=== PATIENT | male | born 1985 | race Caucasian/White ===

== ENCOUNTER 2018-09-07 03:25 | Emergency (ER) | payer OTHER, SELFPAY ==
[2018-09-07 03:27] VITALS: BP 140/98; PULSE 79; RESP 16; TEMP 36.6; O2SAT 97; BMI 29.0
--- NOTE | 2018-09-07 03:38 | RAD_ITS ---
STUDY: X-RAY - LEFT HAND, ATTENTION ring FINGER REASON FOR EXAM: Male, 32 years old. Trauma TECHNIQUE: 3 view(s) of the finger were obtained. COMPARISON: None. FINDINGS: Normal metacarpal head. Normal metacarpophalangeal joint. Normal proximal phalanx. Normal middle phalanx. There is fracture involving the distal tuft of the ring finger with displacement by approximately one shaft width. Normal proximal interphalangeal joint. Normal distal interphalangeal joint. RAD/Finger(s) Min 2 Views IMPRESSION: Distal tuft fracture of the ring finger with displacement by approximately one shaft width. Electronically Signed: Esteban Beckford, at 4:03 EDT Tel , Service support ,
--- NOTE | 2018-09-07 03:39 | ED.VIS.UPPEX ---
History of Present Illness Chief Complaint: Upper Extremity Injury Informant: Patient Onset: Today - JPTA Context: Sudden Onset Timing: Continuous Quality of Pain: - - sore/ache Location: left ring finger Current Severity: Moderate Maximum Severity: Moderate Worsened by: moving Relieved by: leaving alone Associated Symptoms: Negative for: Parasthesia, Weakness, Loss of Funtion Narrative: Work-related injury on this left hand dominant healthy 32-year-old. 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 No other injuries. There was some minor bleeding. Tetanus Immunization: <5 years Past Medical History - Allergies and Home Meds Allergies/Adverse Reactions: Allergies No Known Allergies Allergy (Verified 09/07/18 03:27) Primary Care Physician: [facility] Doctor,Out of [Primary Care Provider] - Past Medical History: None Smoking Status: Never smoker Drugs: None Review of Systems Musculoskeletal: Reports: Swelling - had ring cut off just after injury, prior to ED arrival, Extremity Pain Skin: Reports: Wounds Neurological: Denies: Weakness, Parasthesia Physical Exam Vital Signs/Narrative: Vital Signs Temp Pulse Resp BP Pulse Ox 09/07/18 03:27 97.8 F 79 16 140/98 H 97 General: Well nourished, Well developed, - - well-appearing, nad Head: Normocephalic, Atraumatic Extremeties: Mildly swollen and tender left ring finger from distal phalanx all the way to PIPJ. No deformity. Able to flex FDS, FDP, and extensor, but limited range of motion due to swelling and pain. Proximal subungual hematoma with significant nail tenderness, no nail disruption from bed or cuticle. Skin: Trauma - pinhole-sized wound volar left ring finger at DIPJ, no active bleeding but dried blood present Neurological: Alert, Oriented x3, Cranial nerves II-XII grossly intact, Normal Strength, Normal Sensation, Normal Gait Psychological: Normal affect, Normal Mood Diagnostic/Tx/Re-eval - Medical Decision Making On my interpretation x-ray shows nondisplaced fracture of the tuft, the other bones are all intact and the joints are normal limits. Patient was amenable to subungual hematoma drainage via nail trephination. This was performed in a sterile manner, see procedure note, however no significant amount of blood was able to be expressed. I suspect the reason for this is that it was too small and not under pressure. It was bandaged with bacitracin and he was given a distal finger cage splint for protection, this should be a nonsurgical fracture. Given appropriate work restrictions. Procedures Procedure(s): Nail trephination for subungual hematoma -- low temperature electrocautery device used in a sterile fashion prepped with chlorhexidine and isoproterenol. No significant amount of blood was able to be expressed. Bandage with bacitracin. ED Disposition - Plan for ED Patient: Disposition: Home or Assisted Living Diagnosis: Fracture of distal phalanx of left ring finger, Subungual hematoma of finger of left hand Instructions: Subungual Hematoma, FRACTURE, Finger (Closed) Referrals: [facility]YSICIANS] - (2-3 days -- call for appt day/time)
[2018-09-07 05:15] VITALS: BP 134/86; PULSE 67; RESP 17; O2SAT 98
== END 2018-09-07 05:16 | disposition home or self-care (01) ==
LOC: ED 04:17
PROVIDERS: Emergency Provider Emergency Medicine; Family Provider Family Medicine; PCP Family Medicine
DX: S62.665A Nondisplaced fracture of distal phalanx of left ring finger, initial encounter for closed fracture (principal); S60.142A Contusion of left ring finger with damage to nail, initial encounter; W23.0XXA Caught, crushed, jammed, or pinched between moving objects, initial encounter; Y93.9 Activity, unspecified; Y92.9 Unspecified place or not applicable
CPT/HCPCS: 73140; 99284